=== PATIENT | female | born 1985 | race Caucasian/White ===

== ENCOUNTER 2018-06-07 20:18 | Emergency (ER) | payer OTHER ==
[~2018-06-07] VITALS: Ht 160 cm; Wt 87.5 kg
[2018-06-07 20:41] VITALS: Ht 160 cm; Wt 87.5 kg
[2018-06-07 22:07] VITALS: BP 109/64
== END 2018-06-07 22:07 | disposition home or self-care (01) ==
LOC: ED 20:18
DX: N39.0 Urinary tract infection, site not specified (principal); Z88.0 Allergy status to penicillin

== ENCOUNTER 2018-08-23 05:10 | Emergency (ER) | payer OTHER ==
[~2018-08-23] VITALS: Ht 160 cm; Wt 82.1 kg
[2018-08-23 05:14] VITALS: Ht 160 cm; Wt 82.1 kg
[2018-08-23 07:50] LABS: UA SPECIFIC GRAVITY >=1.030 (1.005-1.035); microscopic required? YES; urine erythrocyte TRACE (NEGATIVE)
[2018-08-23 08:19] VITALS: BP 117/87
== END 2018-08-23 08:19 | disposition home or self-care (01) ==
LOC: ED 05:10
PROVIDERS: Emergency Medicine
DX: N76.0 Acute vaginitis (principal); N34.2 Other urethritis; N39.0 Urinary tract infection, site not specified; Z88.0 Allergy status to penicillin; Z98.890 Other specified postprocedural states
CPT/HCPCS: 87491; 87591

== ENCOUNTER 2018-09-03 17:00 | Emergency (ER) | payer OTHER ==
[~2018-09-03] VITALS: Ht 160 cm; Wt 76.2 kg
[2018-09-03 17:02] VITALS: BP 123/80; Ht 160 cm; Wt 76.2 kg
[2018-09-03 17:54] LABS: AMPHETAMINE QUAL UR POSITIVE (See below)
== END 2018-09-03 17:29 | disposition left against medical advice (07) ==
LOC: ED 17:00
PROVIDERS: Emergency Medicine
DX: T43.625A Adverse effect of amphetamines, initial encounter (principal); Z88.0 Allergy status to penicillin; Z98.890 Other specified postprocedural states; Y92.89 Other specified places as the place of occurrence of the external cause
CPT/HCPCS: J2060

== ENCOUNTER 2018-09-06 10:10 | Emergency (ER) | payer OTHER ==
[~2018-09-06] VITALS: Ht 160 cm; Wt 80.3 kg
[2018-09-06 10:25] VITALS: Ht 160 cm; Wt 80.3 kg
[2018-09-06 11:32] VITALS: BP 129/100
== END 2018-09-06 11:32 | disposition left against medical advice (07) ==
LOC: ED 10:10
DX: F15.10 Other stimulant abuse, uncomplicated (principal); F12.10 Cannabis abuse, uncomplicated; F17.210 Nicotine dependence, cigarettes, uncomplicated; Z71.6 Tobacco abuse counseling; Z88.0 Allergy status to penicillin; Z98.890 Other specified postprocedural states
CPT/HCPCS: 99406

== ENCOUNTER 2018-09-06 13:13 | Emergency (ER) | payer OTHER ==
[~2018-09-06] VITALS: Ht 160 cm; Wt 81.6 kg
[2018-09-06 13:28] VITALS: Ht 160 cm; Wt 81.6 kg
[2018-09-06 14:22] VITALS: BP 105/56
== END 2018-09-06 14:05 | disposition other institution (70) ==
LOC: ED 13:13
DX: Z02.89 Encounter for other administrative examinations (principal)